=== PATIENT | male | born 1980 | race Caucasian/White ===

== ENCOUNTER 2016-12-12 16:28 | Observation (INO) | payer OTHER ==
[~2016-12-12] VITALS: Ht 180.3 cm; Wt 100.2 kg
[2016-12-12] VITALS (9 sets, daily range): BP systolic 122–152; BP diastolic 65–100; PULSE 56–68; TEMP 97.7–97.8
[2016-12-12] MEDS ORDERED: NORCO 325 MG-7.1 TAB PO (18:18)
[2016-12-12] MEDS ORDERED: ZOLOFT 100MG100 MG PO (18:18)
== END 2016-12-12 21:58 | disposition home or self-care (01) ==
LOC: SURG 16:28
DX: N20.1 Calculus of ureter (principal); Z80.0 Family history of malignant neoplasm of digestive organs; F32.9 Major depressive disorder, single episode, unspecified
CPT/HCPCS: C1769; J0690; J1100; J2405; J2704; J3010; J7120; Q9967